=== PATIENT | female | born 1980 | race Caucasian/White ===

== ENCOUNTER 2017-09-13 17:34 | Emergency (ER) | payer MEDICAID ==
[2017-09-13] MEDS ORDERED: HYDROMORPHONE HCL INJ/PF 2 MG/ML AMPULE IM ONE (17:54)
[2017-09-13] MEDS ORDERED: KETOROLAC TROMETHAMINE 60 MG/2 ML SDV IM ONE (17:55)
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
[2017-09-13] MEDS ORDERED: OXYCODONE-ACETAMINOPHEN 5-325 MG TABLET PO ONE (19:29)
[2017-09-13 20:03] VITALS: BP 137/83
== END 2017-09-13 19:50 | disposition home or self-care (01) ==
LOC: ER 17:34
DX: M54.5 Low back pain (principal); M79.604 Pain in right leg; R20.0 Anesthesia of skin; V86.99XA Unspecified occupant of other special all-terrain or other off-road motor vehicle injured in nontraffic accident, initial encounter; Z72.0 Tobacco use
CPT/HCPCS: 99283; 96372; 72131; J1885; J1170

== ENCOUNTER 2019-07-26 12:18 | Emergency (ER) | payer OTHER, MEDICAID ==
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
[2019-07-26] MEDS ORDERED: KETOROLAC TROMETHAMINE INJ/PF 30 MG/1 ML SDV IV ONE (13:31)
[2019-07-26] MEDS ORDERED: DIPHENHYDRAMINE HCL 50 MG/ML VIAL IV ONE (13:31)
[2019-07-26] MEDS ORDERED: NORMAL SALINE 1000 ML 1,000 ML IV ONE (13:31)
[2019-07-26] MEDS ORDERED: PROCHLORPERAZINE EDISYLATE INJ 10 MG/2 ML VIAL IV ONE (13:31)
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
[2019-07-26 15:26] VITALS: BP 129/80
== END 2019-07-26 15:36 | disposition home or self-care (01) ==
LOC: ER 12:18
DX: S16.1XXA Strain of muscle, fascia and tendon at neck level, initial encounter (principal); R51 Headache; M25.512 Pain in left shoulder; M79.10 Myalgia, unspecified site; V43.52XA Car driver injured in collision with other type car in traffic accident, initial encounter; F17.200 Nicotine dependence, unspecified, uncomplicated
CPT/HCPCS: 99283; 96361; 96374; 96375; 72050; 73030; J1200; J1885; J0780; J7030

== ENCOUNTER → 2020-02-04 | Outpatient (CLI) | payer MEDICAID ==
--- NOTE | 2020-02-04 11:33 | WOMENS IMAGING REPORT ---
EXAM DESCRIPTION: U/S ABDOMEN LIMITED IMAGES COMPLETED DATE/TIME: 02/04/2020 9:01 am REASON FOR STUDY: R11.2 NAUSEA WITH VOMITING, UNSPECIFIED R10.816 EPIGASTRIC ABDOMINAL TENDER R10.81 6 EPIGASTRIC ABDOMINAL TENDERNESS R11.2 NAUSEA WITH VOMITING, UNSPECIFIED COMPARISON: 09/22/2015 TECHNIQUE: Dynamic and static grayscale images acquired of the abdomen and recorded on PACS. Additio nal selected color Doppler and spectral images recorded. LIMITATIONS: None. FINDINGS: PANCREAS: No masses. Visualized pancreatic duct normal caliber. LIVER: The liver is echogenic consistent with fatty infiltration. The liver measures 17.2 cm in cran ial caudal dimensions. LIVER VASCULATURE: Normal directional flow of the main portal vein and hepatic veins. GALLBLADDER: No stones. Normal wall thickness. No pericholecystic fluid. ULTRASOUND-DETECTED BAKER'S SIGN: Negative. INTRAHEPATIC DUCTS AND COMMON DUCT: CBD and intrahepatic ducts normal caliber. No filling defects. INFERIOR VENA CAVA: Normal flow. AORTA: No aneurysm. RIGHT KIDNEY: Normal size. Normal echogenicity. No solid or suspicious masses. No hydronephrosis. No calcifications. PERITONEAL AND RIGHT PLEURAL SPACE: No ascites or effusions. OTHER: No other significant findings. IMPRESSION: Hepatic steatosis. No other significant findings. TECHNICAL DOCUMENTATION: JOB ID: [id number] 2010 [employer]- All Rights Reserved Reading location - IP/workstation name: [email or web address]
== END ==
LOC: WI 08:40
PROVIDERS: ATTEND Internal Medicine Gastroenterology
DX: R10.816 Epigastric abdominal tenderness (principal); R11.2 Nausea with vomiting, unspecified
CPT/HCPCS: 76705